=== PATIENT | female | born 1975 | race Caucasian/White ===

== ENCOUNTER → 2020-06-25 17:42 | Outpatient (CLI) | payer OTHER, SELFPAY | PROVIDERS: PCP Nurse Practitioner Family; Referring Provider Nurse Practitioner Family; Visit Provider Nurse Practitioner Family | DX: Z20.828 Contact with and (suspected) exposure to other viral communicable diseases (principal); R05 Cough; R52 Pain, unspecified | CPT/HCPCS: 87635; C9803; U0003 ==